=== PATIENT | female | born 1960 | race Caucasian/White ===

== ENCOUNTER 2020-04-22 13:50 | Emergency (ER) | payer MEDICAID ==
[~2020-04-22] VITALS: Ht 162.6 cm; Wt 72.6 kg
[2020-04-22] MEDS ORDERED: MELO-107 PO (14:23)
[2020-04-22] MEDS ORDERED: SIMV-46 PO (14:23)
[2020-04-22] MEDS ORDERED: ASPI-869 PO (14:23)
--- NOTE | 2020-04-22 14:23 | NUR ---
PT IS IN ROOM #1B. DR CAMARA EVALUATED THE PT.
--- NOTE | 2020-04-22 15:31 | NUR ---
PT WAS D/C'd TO HOME, D/C INSTRUCTIONS GIVEN TO THE PT BY DR CAMARA.
[2020-04-22 15:42] VITALS: BP 132/77
== END 2020-04-22 15:43 | disposition home or self-care (01) ==
LOC: ER 13:50
DX: M19.022 Primary osteoarthritis, left elbow (principal); R03.0 Elevated blood-pressure reading, without diagnosis of hypertension
CPT/HCPCS: 73080; A4663